=== PATIENT | female | born 1965 | race Caucasian/White ===

== ENCOUNTER 2025-06-08 10:49 | Outpatient (AMB) | payer MEDICARE, SELFPAY ==
--- NOTE | 2025-06-08 10:52 | HO.SPINEOV ---
Vital Signs 06/08/25 10:56 Height 5 ft 2 in Weight 174 lb BMI 31.8 Intake Visit Reasons: LBP Intake Note: Ms. Sullivan is here today c/o Low back pain radiating to both legs. MRI done at [facility]. Imaging Assistant Required: No Allergies No Known Allergies Allergy (Verified 06/08/25 10:57) Physical Exam Vital Signs: BMI result Body Mass Index 31.8 Assessment & Plan Assessment & Plan (1) Lumbago: Code(s): M54.50 - Low back pain, unspecified Category: Medical Plan Dear VIOLETA Tomlinson, Thank you for referring Deborah to our office today. She is a pleasant 60-year-old female who comes in today for evaluation of potential SI joint fusion after being evaluated and treated at [facility] for her low back pain and left leg pain. She reports that this pain started several years ago, and has progressively gotten worse. She denies any known inciting incident. When describing her pain she states that it starts in her low back and runs across the small of her low back into her left lateral hip. She denies any numbness/tingling/burning/weakness associated with the pain. She states that her pain is present all day, however worsens with activity. She is able to obtain some minor relief if she sits down in her recliner. She rates her daily pain as a 7-9/10. She reports that no someone who had a similar pain, which was successfully treated with SI joint fusion. She is hopeful that we are able to do this for her. She has attempted several different fqfe-uyo-focgyqi medications in an effort to treat this, including Tylenol, Advil, and pain creams/gels. She is currently prescribed tramadol to help mitigate her pain, however reports it only provides very modest relief. She did attempt a series of bilateral SI joint injections, which unfortunately did not provide her with any meaningful relief of her pain. She did get some relief for a few weeks after facet joint injections. She reports that she has not as of yet attempted physical therapy. PMH: Hyperlipidemia, benign heart murmur (reported follow up echocardiogram was unremarkable), hypothyroidism. The patient denies any surgical history. Social hx: The patient does not smoke, reports no substance use. Medications: Contrave, Citalopram, rosuvastatin, levothyroxine, Tramadol. Allergies: NKDA. Physical exam: The patient has 5/5 strength of her upper and lower extremities. She does elicit some pain to full strength testing of her left-sided iliopsoas. She ambulates well with a nonantalgic non spastic gait. She uses no assistive devices to ambulate. Her reflexes are 2+ intact. She has no significant sensational deficits reported during examination to light touch. (-) Lacho's bilaterally, (-) Sami finger test, (-) SI joint compression test, (-) bilateral straight leg raise, (-) Garcia's, (-) clonus. Imaging review: MRI of the lumbar spine completed at [facility] shows notable facet arthropathy at L2-3, L3-4. There is some loss of disc height at L5-S1. There is no significant nerve compression noted on MRI imaging. X-ray imaging taken in November at [facility] shows no evidence of instability. Impression: Deborah is a pleasant 60-year-old female coming in today for evaluation of low back pain and shooting pain into her left lateral thigh/hip. This has been ongoing for many years, however has worsened over the course of the last year so. She has attempted SI joint injections with our colleagues at [facility]. Unfortunately these did not provide her with meaningful relief of her pain. She did get some therapeutic response to facet injections. Unfortunately to pursue SI joint fusion the patient must have at least 2 separate injections which provided equal to or greater than 90% relief of her pain. I discussed how her pain may be originating from her facet arthropathy or potentially coming from her left hip. I encouraged her to continue follow up with [facility] to see if they can attempt evaluation of the hip and/or subsequent facet joint injections. Thank you for allowing us to care for your patient. The total time spent with this visit with this patient was 45 minutes reviewing history, physical exam, MRI & X-ray imaging review, and implementation of treatment plan or further diagnostic testing Edwin Mack MD,PhD [facility] Medications: New baclofen 10 mg PO TID PRN 30 tabs 0RF muscle spasm Coding Level of Care Code New Pt Level 4 (48278) Diagnoses Lumbago M54.50
[2025-06-08 10:56] VITALS: BMI 31.8
== END 2025-06-08 11:36 | disposition home or self-care (01) ==
LOC: HO.HNS 10:49
PROVIDERS: PCP Family Medicine; Referring Provider Nurse Practitioner Adult Health; Visit Provider Physician Assistant
DX: M54.50 Low back pain, unspecified (principal)
CPT/HCPCS: 99204

== ENCOUNTER → 2025-06-08 10:49 | Outpatient (BNVA) | payer MEDICARE, SELFPAY | PROVIDERS: PCP Family Medicine; Referring Provider Nurse Practitioner Adult Health; Visit Provider Physician Assistant | DX: M54.50 Low back pain, unspecified (principal) | CPT/HCPCS: 99202 ==